=== PATIENT | female | born 1985 | race Two or more races ===

== ENCOUNTER 2022-10-07 08:42 | Emergency (ER) | payer OTHER ==
[~2022-10-07] VITALS: Ht 160 cm; Wt 158.8 kg
[2022-10-07] MEDS ORDERED: ZETIA10 MG PO (09:01)
[2022-10-07] MEDS ORDERED: LIPITOR40 MG PO (09:01)
== END 2022-10-07 12:50 | disposition home or self-care (01) ==
LOC: ER 08:42
DX: H60.91 Unspecified otitis externa, right ear (principal); J02.9 Acute pharyngitis, unspecified; Z20.822 Contact with and (suspected) exposure to COVID-19; Z88.6 Allergy status to analgesic agent

== ENCOUNTER 2022-12-06 14:29 | Emergency (ER) | payer OTHER ==
[~2022-12-06] VITALS: Ht 162.6 cm; Wt 133.8 kg
[~2022-12-06 14:29] MED LIST: LIPITOR40 MG PO; ZETIA10 MG PO
== END 2022-12-06 16:53 | disposition home or self-care (01) ==
LOC: ER 14:29
DX: M62.830 Muscle spasm of back (principal); Z88.6 Allergy status to analgesic agent

== ENCOUNTER 2022-12-07 08:04 | Outpatient (CLI) | payer OTHER | END 2022-12-07 08:06 | disposition home or self-care (01) | LOC: RAD 08:04 | DX: M54.50 Low back pain, unspecified (principal) ==

== ENCOUNTER 2023-04-25 09:05 | Outpatient (CLI) | payer OTHER | END 2023-04-25 09:06 | disposition home or self-care (01) | LOC: LAB 09:05 | DX: R05.8 Other specified cough (principal); R50.9 Fever, unspecified; Z03.818 Encounter for observation for suspected exposure to other biological agents ruled out; J11.1 Influenza due to unidentified influenza virus with other respiratory manifestations ==

== ENCOUNTER 2023-09-24 15:43 | Outpatient (CLI) | payer OTHER | END 2023-09-24 15:50 | disposition home or self-care (01) | LOC: RAD 15:43 | DX: M25.562 Pain in left knee (principal); Z88.6 Allergy status to analgesic agent ==

== ENCOUNTER 2023-10-07 14:00 | Outpatient (CLI) | payer OTHER | END 2023-10-07 14:13 | disposition home or self-care (01) | LOC: MRI 14:00 | PROVIDERS: ATTEND Physical Medicine & Rehabilitation Hospice and Palliative Medicine | DX: M17.12 Unilateral primary osteoarthritis, left knee (principal); M23.204 Derangement of unspecified medial meniscus due to old tear or injury, left knee | CPT/HCPCS: 73721 ==

== ENCOUNTER 2023-11-23 09:30 | Outpatient (CLI) | payer OTHER ==
[2023-11-23 11:18] LABS: HEMATOCRIT 40.6 % (36.0-45.00); HEMOGLOBIN 13.7 g/dL (12.0-15.00); MEAN CELL VOLUME 92.9 fL (80.00-100.00); MEAN CORPUSCULAR HEMOGLOBIN 31.4 pg (27.00-32.0); MEAN CORPUSCULAR HGB CONC 33.8 g/dl (32.0-36.0); PLATELET COUNT 291 K/uL (150-450); RED BLOOD COUNT 4.37 M/uL (4.00-6.00); RED CELL DISTRIBUTION WIDTH 14.5 % (11.5-14.5)
[2023-11-23 11:21] LABS: ERYTHROCYTE SEDIMENTATION RATE 29 mm/hr
[2023-11-23 11:55] LABS: ALBUMIN 3.9 gm/dL (3.4-5.0); BILIRUBIN TOTAL 0.41 mg/dL (0.3-1.2); CALCIUM 9.1 mg/dL (8.5-10.1); CHOL HDL RATIO 3.4 (0-5.0); CREATININE SERUM 0.66 mg/dL (0.55-1.02); GFR 99.7; GLOBULINA 3.6 G/DL (2.4-3.5); POTASSIUM 4.5 mEq/L (3.5-5.1); TOTAL PROTEIN 7.5 gm/dL (6.4-8.2)
== END 2023-11-23 09:31 | disposition home or self-care (01) ==
LOC: LAB 09:30
DX: I11.9 Hypertensive heart disease without heart failure (principal); E78.5 Hyperlipidemia, unspecified

== ENCOUNTER 2024-02-01 08:09 | Outpatient (CLI) | payer OTHER | END 2024-02-01 08:13 | disposition home or self-care (01) | LOC: RAD 08:09 | DX: M79.641 Pain in right hand (principal); M79.642 Pain in left hand ==

== ENCOUNTER 2024-02-01 08:44 | Outpatient (CLI) | payer OTHER ==
[2024-02-01 11:30] LABS: PH,URINE 7.5 (5.0-8.0); URINE APPEARANCE Turbid; URINE BILIRRUBIN Negative (NEGATIVE); URINE BLOOD Small; URINE COLOR Yellow; URINE GLUCOSE Negative (NEGATIVE); URINE LEUKOCYTE Small; URINE NITRATE Negative; URINE PROTEIN Negative (NEGATIVE); URINE UROBILINOGEN 0.2 E.U./dl
[2024-02-01 11:34] LABS: URINE BACTERIA 2250.1 uL (0.0-1933); URINE RBC 44.8 uL (0.0-20.8); URINE WBC 19.4 uL (0.0-23.2)
[2024-02-01 11:35] LABS: HEMATOCRIT 39.1 % (36.0-45.00); HEMOGLOBIN 13.2 g/dL (12.0-15.00); MEAN CELL VOLUME 93.6 fL (80.00-100.00); MEAN CORPUSCULAR HEMOGLOBIN 31.7 pg (27.00-32.0); MEAN CORPUSCULAR HGB CONC 33.9 g/dl (32.0-36.0); PLATELET COUNT 267 K/uL (150-450); RED BLOOD COUNT 4.17 M/uL (4.00-6.00); RED CELL DISTRIBUTION WIDTH 14.8 % (11.5-14.5)
[2024-02-01 11:48] LABS: ERYTHROCYTE SEDIMENTATION RATE 32 mm/hr
[2024-02-01 12:34] LABS: ALBUMIN 3.8 gm/dL (3.4-5.0); BILIRUBIN TOTAL 0.69 mg/dL (0.3-1.2); CALCIUM 9.1 mg/dL (8.5-10.1); CREATININE SERUM 0.71 mg/dL (0.55-1.02); GFR 91.64; GLOBULINA 3.7 G/DL (2.4-3.5); POTASSIUM 3.98 mEq/L (3.5-5.1); TOTAL PROTEIN 7.5 gm/dL (6.4-8.2)
[2024-02-01 12:41] LABS: C-REACTIVE PROTEIN 0.32 MG/DL (0.00-0.29)
== END 2024-02-01 08:45 | disposition home or self-care (01) ==
LOC: LAB 08:44
DX: M25.50 Pain in unspecified joint (principal)

== ENCOUNTER 2024-05-16 11:26 | Outpatient (CLI) | payer OTHER ==
[2024-05-16 12:32] LABS: HEMATOCRIT 37.6 % (36.0-45.00); HEMOGLOBIN 12.6 g/dL (12.0-15.00); MEAN CELL VOLUME 95.7 fL (80.00-100.00); MEAN CORPUSCULAR HEMOGLOBIN 32.2 pg (27.00-32.0); MEAN CORPUSCULAR HGB CONC 33.6 g/dl (32.0-36.0); PLATELET COUNT 261 K/uL (150-450); RED BLOOD COUNT 3.93 M/uL (4.00-6.00); RED CELL DISTRIBUTION WIDTH 14.9 % (11.5-14.5)
== END 2024-05-16 11:31 | disposition home or self-care (01) ==
LOC: LAB 11:26
DX: R50.9 Fever, unspecified (principal)

== ENCOUNTER → 2024-08-22 09:33 | Outpatient (CLI) | payer OTHER ==
[2024-08-22 11:18] LABS: HEMATOCRIT 40.8 % (36.0-45.00); HEMOGLOBIN 13.5 g/dL (12.0-15.00); MEAN CELL VOLUME 95.7 fL (80.00-100.00); MEAN CORPUSCULAR HEMOGLOBIN 31.6 pg (27.00-32.0); PLATELET COUNT 284 K/uL (150-450); RED BLOOD COUNT 4.26 M/uL (4.00-6.00); RED CELL DISTRIBUTION WIDTH 15.1 % (11.5-14.5)
[2024-08-22 11:46] LABS: BILIRUBIN TOTAL 0.54 mg/dL (0.3-1.2); CALCIUM 9.5 mg/dL (8.5-10.1); CREATININE SERUM 0.67 mg/dL (0.55-1.02); GFR 97.48; GLOBULINA 3.4 G/DL (2.4-3.5); POTASSIUM 4.22 mEq/L (3.5-5.1); TOTAL PROTEIN 7.4 gm/dL (6.4-8.2)
[2024-08-22 11:54] LABS: PH,URINE 7.5 (5.0-8.0); URINE APPEARANCE Turbid; URINE BILIRRUBIN Negative (NEGATIVE); URINE COLOR Yellow; URINE GLUCOSE Negative (NEGATIVE); URINE KETONE Negative (NEGATIVE); URINE LEUKOCYTE Negative; URINE NITRATE Negative; URINE PROTEIN Negative (NEGATIVE); URINE UROBILINOGEN 0.2 E.U./dl
[2024-08-22 12:02] LABS: URINE BACTERIA 4206.8 uL (0.0-1933); URINE EPITHELIAL CELLS 91.6 uL (0.0-38.8); URINE RBC 11.1 uL (0.0-20.8); URINE WBC 20.7 uL (0.0-23.2)
[2024-08-22 12:12] LABS: URINE BLOOD TRACE
[2024-08-22 12:13] LABS: URINE YEAST NEGATIVE /hpf
== END | disposition home or self-care (01) ==
LOC: LAB 09:33
PROVIDERS: ATTEND Internal Medicine Rheumatology
DX: E55.9 Vitamin D deficiency, unspecified (principal); M17.0 Bilateral primary osteoarthritis of knee

== ENCOUNTER 2024-11-07 09:55 | Outpatient (CLI) | payer OTHER ==
[2024-11-07 11:47] LABS: BILIRUBIN TOTAL 0.72 mg/dL (0.3-1.2); CALCIUM 9.4 mg/dL (8.5-10.1); CHOL HDL RATIO 2.9 (0-5.0); CREATININE SERUM 0.7 mg/dL (0.55-1.02); GFR 92.68; GLOBULINA 3.5 G/DL (2.4-3.5); POTASSIUM 4.07 mEq/L (3.5-5.1); TOTAL PROTEIN 7.5 gm/dL (6.4-8.2)
[2024-11-07 12:20] LABS: HEMATOCRIT 38.5 % (36.0-45.00); HEMOGLOBIN 13.1 g/dL (12.0-15.00); MEAN CORPUSCULAR HEMOGLOBIN 32.6 pg (27.00-32.0); PLATELET COUNT 282 K/uL (150-450); RED BLOOD COUNT 4.01 M/uL (4.00-6.00); RED CELL DISTRIBUTION WIDTH 14.1 % (11.5-14.5)
== END 2024-11-07 09:58 | disposition home or self-care (01) ==
LOC: LAB 09:55
DX: E78.2 Mixed hyperlipidemia (principal); I10 Essential (primary) hypertension

== ENCOUNTER 2025-07-09 13:37 | Outpatient (CLI) | payer OTHER | END 2025-07-09 14:00 | disposition home or self-care (01) | LOC: MRI 13:37 | PROVIDERS: ATTEND Orthopaedic Surgery Sports Medicine | DX: M25.521 Pain in right elbow (principal) ==